=== PATIENT | female | born 2000 | race Caucasian/White ===

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

== ENCOUNTER 2024-02-25 11:28 | Emergency (ER) | payer BC, SELFPAY ==
[2024-02-25 11:29] VITALS: BP 137/89; PULSE 92; RESP 20; TEMP 37.2; O2SAT 100; BMI 20.1
--- NOTE | 2024-02-25 11:42 | XR_ITS ---
FINAL REPORT CLINICAL HISTORY: with [facility] view - concern for osteo vs septic eri FINDINGS: Right knee Four views were obtained. There is no acute fracture or dislocation. The joint spaces appear normal. There is abnormal sclerosis of the patella, probably related to prior patellar surgery. There is soft tissue edema anterior to the knee. No definite bony erosion or periosteal reaction is identified. IMPRESSION: No acute process. Reviewed, Interpreted and Dictated by Harvey Collado MD Transcribed by Minerva Chappell Authenticated and [facility]
--- NOTE | 2024-02-25 11:44 | ED_ITS ---
Discharge Plan Disposition Patient Disposition: Home, Self-Care Chief Complaint: Extremity Problem,Nontraumatic Prescriptions Prescriptions: No Action No Known Home Medications Referrals Follow up/Referrals: Fabrizio King MD [Primary Care Provider] - See instructions Activity Restrictions/Add. Instructions Additional Instructions/Restrictions: Follow-up with your family doctor regarding this visit to the emergency department as needed. Also contact the orthopedic office and maintain follow-up as we discussed on Thursday. If you have any other concerning signs or symptoms, return to the emergency department for further evaluation. Clinical Impressions Clinical Impression: Pain and swelling of right knee Print Language Print Language: Mohawk Discharge ED Provider: Tha Knutson General Adult HPI General Chief complaint: Extremity Problem,Nontraumatic Stated complaint: pain and swelling R knee, post op 5 weeks Time Seen by Provider: 02/25/24 11:31 History of Present Illness HPI narrative: Please note that above description of symptoms, in this electronic medical record under categorization of recalled from ER triage doctor by RN are reflective of an initial nursing assessment, however, is not reflective of my full history and physical exam that was personally taken and clarified. Consequentially, this preceding description of symptoms, which may include the patient's categorized chief complaint in the EMR, do not reflect my personal clinical impression, and the ultimate description of history of present illness and patient stated complaints should be deferred to this section of the note. Unless stated otherwise or congruent with this section of the note, additional signs, symptoms, or incongruence should be interpreted as inaccurate with my clinical impression. Related Data Home Medications ?Medication ?Instructions ?Recorded ?Confirmed No Known Home Medications 12/28/23 12/28/23 Allergies Allergy/AdvReac Type Severity Reaction Status Date / Time No Known Allergies Allergy Unverified 12/28/23 14:53 [facility] Disclaimer: The information contained in this section may have been updated after the patient was seen, as this information can be updated by other users. Surgical History (Updated 12/28/23 @ 14:54 by Betsy Serrano) History of cholecystectomy History of knee surgery Family History (Updated 12/28/23 @ 14:55 by Betsy Serrano) Other FHx: mental illness Thyroid disorder Social History (Updated 12/28/23 @ 14:58 by Betsy Serrano) Smoking Status: Current every day smoker alcohol intake: never substance use type: marijuana current occupational status: employed Travel in the last 8 weeks: None household members: family housing: house marital status: single number of children: 0 ROS Obtained: Yes All systems reviewed & no additional complaints except as documented Physical Exam General General appearance: alert and anxious Head Head exam: atraumatic and normocephalic Eye Eye exam: Present normal appearance, PERRL and EOMI Neck Neck exam: Present normal inspection, full ROM and trachea midline Respiratory Respiratory exam: Absent respiratory distress, wheezes, stridor, accessory muscle use or prolonged expiratory phase Cardiovascular Cardiovascular exam: Present other (Pulses equal symmetric in upper and lower extremities) Abdominal Exam Abdominal exam: Present soft; Absent distention, tenderness or pulsatile mass Extremities Exam Extremities exam: Present edema, joint swelling and other (Surgical scars overlying right knee. Right knee effusion with erythema. Tenderness with patellar glide. Tenderness at joint space medially and laterally. No posterior tenderness. Flexion of knee intact, extension of knee absent, but chronic.); Absent full ROM Neurological Exam Neurological exam: Present alert, oriented X3 and CN II-XII intact; Absent motor sensory deficit Skin Skin exam: Present warm and dry; Absent diaphoresis or erythema Medical Decision Making Medical Records Medical records reviewed: Yes I reviewed the patient's medical records. Ike Inquiry Pt receiving controlled substance: No Ike was queried for this patient: No Vital Signs: 02/25/24 11:29 02/25/24 11:45 Temperature 98.9 F Temperature Source Oral Pulse Rate 82 Pulse Rate [Right] 92 H Respiratory Rate 20 Blood Pressure [Right Arm] 137/89 Blood Pressure Mean [Right Arm] 105 02 Sat by Pulse Oximetry 100 97 Oxygen Delivery Method Room Air Lab Data Lab Results 02/25/24 11:45: WBC 5.1, RBC 4.57, Hgb 13.9, Hct 42.4, MCV 92.8, MCH 30.4, MCHC 32.8, RDW 13.1, Plt Count 286, MPV 7.9, Neut % (Auto) 51.6, Lymph % (Auto) 41.4, [place] % (Auto) 5.1, Eos % (Auto) 0.8, Baso % (Auto) 1.2, Neut # (Auto) 2.7, Lymph # (Auto) 2.1, [place] # (Auto) 0.3, Eos # (Auto) 0.0, Baso # (Auto) 0.1, ESR 3, Sodium 141, Potassium 4.0, Chloride 107, Carbon Dioxide 26, Anion Gap 12.0, BUN 12, Creatinine 0.70, Estimated Creat Clear 94, Estimated GFR 106, Est GFR ( Amer) 128, Glucose 97, Lactate 1.2, Calcium 9.6, Total Bilirubin 0.3, AST 26, ALT 25, Alkaline Phosphatase 57, C-Reactive Protein 0.3, Total Protein 7.4, Albumin 4.6, Globulin 2.8, Albumin/Globulin Ratio 1.6 02/25/24 11:45 02/25/24 11:45 Orders (Tests/Meds): ED MEDICATIONS Discontinued Medications Generic Name Dose Route Start Last Admin Trade Name Freq PRN Reason Stop Dose Admin Acetaminophen 1,000 mg 02/25/24 11:46 02/25/24 12:01 Acetaminophen 1,000mg/100ml Vial IV 02/25/24 11:47 1,000 mg ONCE ONE Administration Ketorolac Tromethamine 15 mg 02/25/24 11:46 02/25/24 12:01 Ketorolac 30mg/Ml Vial IV 02/25/24 11:47 15 mg ONCE ONE Administration ORDERS Category Date Time Status Knee XR right 4 views [XR knee RT 4V] Stat Exams 02/25/24 11:42 Taken CBC w/Auto Diff [Complete Blood Count Auto Diff] Stat Lab 02/25/24 11:45 Completed CMP [Comprehensive Metabolic Panel] Stat Lab 02/25/24 11:45 Completed CRP [C-Reactive Protein] Stat Lab 02/25/24 11:45 Completed ESR [Erythrocyte Sedimentation Rate] Stat Lab 02/25/24 11:45 Completed Lactic Acid Stat Lab 02/25/24 11:45 Completed Medical Decision Narrative: 23-year-old female history of traumatic arthrotomy right knee with multiple fractures status post numerous reconstructive surgeries most recent being 5 weeks prior to this visit at [facility] presenting with right knee swelling, redness, pain. Patient says it started hurting a few days prior to this. She has been taking ibuprofen and icing at home. Has been following with physical therapy. Over the past couple of days, it has gotten more swollen, erythematous, tender. She is mostly concerned because she has had a history of osteomyelitis in the past necessitating numerous surgeries as well as rejection of orthopedic hardware. She denies systemic symptoms like fevers, chills, nausea, vomiting. History was obtained via conversation with patient. On arrival, patient hemodynamically stable, alert, oriented x4, appropriate, GCS 15, moving all extremities spontaneously, pupils equal and reactive to light. Full physical exam performed and significant for Surgical scars overlying right knee. Right knee effusion with erythema. Tenderness with patellar glide. Tenderness at joint space medially and laterally. No posterior tenderness. Flexion of knee intact, extension of knee absent, but chronic. Differential includes postop changes, rejection, septic arthritis, osteomyelitis, among others. Patient was given Toradol acetaminophen for symptomatic management and correction of underlying abnormalities. Workup independently interpreted and significant for normal CBC with no leukocytosis. ESR and CRP both normal. Chemistry normal as well. X-rays of the knee independently interpreted and with small suprapatellar and joint effusion, no evidence of osteomyelitis. See radiology read for full review of final results. On reevaluation, patient feeling much better. Given patient presentation, workup, history, this most likely represents rejection. Steroids were offered, but patient states that in the past, she had normal labs with osteomyelitis, because of this, suppression of the immune system was not deemed appropriate at this time. She has follow-up with her orthopedic surgeon on Thursday of next week, I feel this is appropriate as well. Strict return precautions were given and she voiced her understanding. Because patient at baseline without signs or symptoms of clinical decompensation, deemed appropriate for discharge. Results were relayed to patient who voiced understanding and were agreeable to outpatient management and follow up. I discussed my clinical impression with patient and answered all questions. At this time, the evidence for any other entities in the differential is insufficient to warrant any further testing or ED observation. This was explained as well. Advisory was given that persistent or worsening symptoms require further evaluation. I confirmed the understanding of this discussion. Radiology Director disclaimer Much of this encounter note is an electronic award clerk spoken language to printed text. Electronic award clerk of the spoken language may permit errors. Although I have reviewed the note, some errors may still exist. Critical Care Critical Care Time Critical Care Time: No
[2024-02-25 11:45] VITALS: PULSE 82; O2SAT 97
[2024-02-25] MEDS: ACETAMINOPHEN 1,000MG/100ML VIAL 1000 MG IV (12:01)
[2024-02-25] MEDS: KETOROLAC 30MG/ML VIAL 15 MG IV (12:01)
[2024-02-25 12:02] LABS: Basophils # 0.1 K/mm3 (0-0.2); Basophils % 1.2 % (0.1-2.0); Eosinophils % 0.8 % (0.1-12.0); Hematocrit 42.4 % (37.0-47.0); Hemoglobin 13.9 g/dL (12.2-16.2); Lymphocytes # 2.1 K/mm3 (0.7-4.5); Lymphocytes % 41.4 % (10-50); Mean Corpuscular HGB Conc 32.8 g/dL (31.8-35.4); Mean Corpuscular Hemoglobin 30.4 pg (27.0-31.2); Mean Corpuscular Volume 92.8 fl (81-99); Mean Platelet Volume 7.9 fl (7.4-10.4); Monocytes # 0.3 K/mm3 (0.1-1.0); Monocytes % 5.1 % (1.7-9.3); Neutrophils # 2.7 K/mm3 (1.8-7.8); Neutrophils % 51.6 % (37.0-80.0); Platelet Count 286 K/mm3 (142-424); Red Blood Count 4.57 M/mm3 (4.20-5.40); Red Cell Distribution Width 13.1 % (11.5-17.5); White Blood Count 5.1 K/mm3 (4.8-10.8)
[2024-02-25 12:19] LABS: Alanine Aminotransferase 25 U/L (12-78); Albumin Level 4.6 g/dl (3.5-5.0); Albumin/Globulin Ratio 1.6 (1.1-1.8); Alkaline Phosphatase 57 U/L (38-126); Aspartate Amino Transferase 26 U/L (14-36); Bilirubin,Total 0.3 mg/dl (0.2-1.3); Blood Urea Nitrogen 12 mg/dl (7-17); Calcium 9.6 mg/dl (8.4-10.2); Carbon Dioxide 26 mmol/L (22.0-30.0); Chloride 107 mmol/L (98-107); Creatinine Clearance Estimated 94 mL/min (50-200); Estimated Glomerular Filt Rate 106 ml/min (>60); GFR (African American) 128 ML/MIN (>60); Globulin 2.8 g/dL (1.3-3.2); Glucose 97 mg/dl (74-100); Sodium 141 mmol/L (136-145); Total Protein,Serum 7.4 g/dl (6.3-8.2)
[2024-02-25 12:20] LABS: Lactic Acid 1.2 mmol/L (0.7-2.1)
[2024-02-25 12:32] LABS: Erythrocyte Sedimentation Rate 3 mm/hr (0-20)
[2024-02-25 12:35] LABS: C-Reactive Protein 0.3 mg/L (0-4)
--- NOTE | 2024-02-25 12:44 | PC.NURSE ---
ROUNDED ON PT. NO NEEDS AT THIS TIME. CALL LIGHT WITHIN REACH
[2024-02-25 13:43] VITALS: BP 137/89; PULSE 82; RESP 20; TEMP 37.2; O2SAT 97
== END 2024-02-25 13:44 | disposition home or self-care (01) ==
PROVIDERS: Emergency Provider Emergency Medicine; PCP Orthopaedic Surgery Pediatric Orthopaedic Surgery
DX: M25.561 Pain in right knee (principal); M25.461 Effusion, right knee
CPT/HCPCS: 73564; 80053; 83605; 85025; 85651; 86140; 96374; 96375; 99284; J0131; J1885

== ENCOUNTER 2024-04-21 15:46 | Outpatient (CLI) | payer BC, SELFPAY ==
--- NOTE | 2024-04-21 16:01 | XR_ITS ---
FINAL REPORT CLINICAL HISTORY: OSTEOCHONDRAL DEFECT OF PATELLA COMPARISON: None FINDINGS: RIGHT KNEE: There are multiple lucencies in the patella that likely represent postoperative change. There is a chronic bone fragment just superior to the patella. No evidence of a joint effusion is noted. There is no soft tissue abnormality. IMPRESSION: Multiple lucencies in the patella that likely represent postoperative change. Chronic appearing bone fragment just superior to the patella, without evidence of a joint effusion. Reviewed, Interpreted and Dictated by Tay Andrews MD Transcribed by Acacia Ba Authenticated and [facility]
== END 2024-04-21 23:59 | disposition home or self-care (01) ==
PROVIDERS: PCP Orthopaedic Surgery Pediatric Orthopaedic Surgery
DX: M95.8 Other specified acquired deformities of musculoskeletal system (principal)
CPT/HCPCS: 73562

== ENCOUNTER 2024-06-06 15:28 | Outpatient (CLI) | payer BC, SELFPAY ==
--- NOTE | 2024-06-06 15:31 | MR_ITS ---
FINAL REPORT CLINICAL HISTORY: RT KNEE PAIN 11 knee surgeries FINDINGS: Multiplanar MR imaging of the right knee was performed without contrast. The medial and lateral menisci are intact without evidence of meniscal tear. The anterior and posterior cruciate ligaments are intact. The medial collateral ligament and lateral ligamentous complex are intact. The distal quadriceps tendon is intact. There is proximal patellar tendinitis. Postoperative changes are seen in the patella with an osteotomy and presumed reconstruction. There is bone marrow edema in the patellar fragment and to a lesser extent the [place] portion of the patella. No significant abnormality is noted of the patellar cartilage. The other cartilage appears intact. A small joint effusion is seen. The musculature is intact. No soft tissue mass or cyst is identified. IMPRESSION: No evidence of meniscal or ligamentous injury. Postoperative changes of the patella with bone marrow edema. No significant focal cartilage abnormality identified. Authenticated and [facility]
== END 2024-06-06 23:59 | disposition home or self-care (01) ==
LOC: RAD 15:28
PROVIDERS: PCP Physician Assistant; Visit Provider Physician Assistant
DX: M22.41 Chondromalacia patellae, right knee (principal)
CPT/HCPCS: 73721

== ENCOUNTER 2024-06-27 14:25 | Outpatient (CLI) | payer BC, SELFPAY ==
--- NOTE | 2024-06-27 14:25 | MR_ITS ---
FINAL REPORT CLINICAL HISTORY: encephalopathy LOSS OF MEMORY 9 ML PROHANCE COMPARISON: None FINDINGS: Multiplanar MR imaging of the brain was performed without and with contrast. There is no evidence of intracranial hemorrhage or mass. No abnormal extra-axial fluid collection is seen. The ventricular size is within normal limits. There is no evidence of shift of the midline structures. The posterior fossa and brainstem have an unremarkable appearance. No area of abnormal restricted diffusion is identified. No abnormal contrast enhancement is seen. Normal major vessel vascular flow voids are noted. IMPRESSION: No acute intracranial abnormality identified. Reviewed, Interpreted and Dictated by Rayray Lin III, MD Transcribed by Acacia Ba Authenticated and [facility]
[2024-06-27] MEDS: GADOTERIDOL INJ 10ML SYRINGE 9 ML IV (15:28)
[2024-06-27] MEDS: SODIUM CHLORIDE 0.9% 10ML SYR (RAD ONLY) 10 ML IV (15:28)
== END 2024-06-27 23:59 | disposition home or self-care (01) ==
LOC: RAD 14:25
PROVIDERS: PCP Physician Assistant; Visit Provider Specialist
DX: R41.3 Other amnesia (principal); E04.9 Nontoxic goiter, unspecified
CPT/HCPCS: 70553; A9576

== ENCOUNTER 2025-04-05 15:42 | Outpatient (CLI) | payer BC, SELFPAY ==
--- OUTSIDE RECORDS SUMMARY | 2025-04-05 15:44 | XMS_ITS | Clinical Summary ---
Author Organization [facility] Address [address] [place] [address] Care Team Providers Care Food Service Team Member Name Role Phone No Pcp, [facility] Primary Care Provider Unavailabl e Source Comments [facility] is fully rolled out with thefollowing exceptions:General Clinical Research [facility] Allergies No known active allergies Medications ondansetron (ZOFRAN ODT) 4 MG disintegrating tabletIndications: Chondral defect of patella, unspecified laterality Dissolve 1 tablet in the mouth every 8 hours as needed for nausea or vomiting. 24 tablet 03/01/20 24 Active gabapentin (NEURONTIN) 100 MG capsuleIndications :Chondral defect of patella, unspecified laterality Take 1 capsule by mouth at bedtime. This prescription contains 30 days' supply. Take 100 mg once a day for 3 days, then take 200 mg once a day for 3 days, then take 300 mg once a day. Take this medication in the evening. When stopping this medication wean off of it starting with 200 mg for 3 days and then 100 mg for 3 days 81 capsule 1 03/01/20 24 Active Active Problems Problem Noted Date Diagnosed Date Knee pain, right 03/09/2024 Acute postoperative pain 03/09/2024 Chondral defect of patella 03/01/2024 Incisional pain 01/19/2024 Pain at surgical incision 01/19/2024 Muscle spasm 01/19/2024 Osteochondral defect of patella 01/19/2024 Impaired functional mobility, balance, gait, and endurance 04/23/2022 Decreased range of motion of right knee 04/23/20 Chronic pain of right knee 04/23/2022 Chronic primary musculoskeletal pain 04/23/2022 Muscle tightness 04/23/2022 Resolved Problems Problem Noted Date Diagnosed Date Resolved Date remote patient monitoring-vivify 01/23/2024 01/23/2024 Encounters Date Type Department Care Team Description 03/10/2025 Orders Only [facility] Division of Orthopaedics [address] [place] [phone] Fabrizio King M.D. Osteochondral defect of patella (Primary Dx) from Last 3 Months Family History Medical History Relation Name Comments Factor V Leiden deficiency Mother Nilo's thyroiditis Mother Malignant Hyperthermia Neg Hx Relation Name Status Comments Mother Social History Tobacco Use Types Packs/Day Years Used Date Smoking Tobacco: Never Smokeless Tobacco: Never Tobacco Cessation:Counseling Given: Not Answered Alcohol Use Standard Drinks/Week Comments Never 0 (1 standard drink = 0.6 oz pur e alcohol) Intimate Partner Violence Answer Date R ecorded If you are in a relationship , do you feel safe in that relationship? Yes 03/17/2024 If you are in a relationship , do you feel safe in that relationship? Not currently in a relationship 03/17/2024 Transportation Needs Answer Date Record ed In the past 12 months, has l ack of transportation kept you from medical appointments, the pharmacy, meetings, work or from getting things needed for daily living? No Current medical transportation issues Not on joselyn e 03/04/2024 Safety and Environment Answer Date Joaquim rded Do you have any concerns of physical abuse, sexual abuse, or neglect of your child? No 03/17/2024 Adult hurting you or family (11-18) Not on file 03/17/2024 Someone touched you in a sexual way? (-18) Not on file 03/17/2024 Is someone hurting your or your family? No 03/17/2024 Historical abuse worry Not on file If you have firearms in the home, are they all in locked storage AND unloaded? Not on file 03/17/2024 Comments No Sex and Gender Information Value Date Recorded Sex Assigned at Not on file Legal Sex Female 12:07 PM EST Gender Identity Not on file Sexual Orientation Not on file Last Filed Vital Signs Vital Sign Reading Time Taken Comments Blood Pressure 95/72 03/11/2024 11:57 AM EDT Pulse 74 03/11/2024 11:57 AM EDT Temperature 36.5 C (97.7 F) 03/11/2024 11:57 AM EDT Respiratory Rate 16 03/11/2024 11:5 7 AM EDT Oxygen Saturation 97% 03/11/2024 4:13 AM EDT Inhaled Oxygen Concentration - - Weight 46.7 kg (102 lb 15.3 oz) 03/09/2024 4:55 PM EDT Height 156.9 cm (5' 1.77 ) 07/04/2021 4:40 PM ES T Body Mass Index 18.97 07/04/2021 4:40 PM EST Plan of Treatment Health Maintenance Due Date Last Done Comments HPV IMMUNIZATION (1 - 3-dose series) 2017 MENINGOCOCCAL B VACCINE (1 of 2 - Standard) 2018 DTAP/Tdap/Td IMMUNIZATION (7 - Td or Tdap) 11/15/2023 11/14/2013, 07/14/2008, 02/28/2004, Additional history exists AMB SEASONAL FLU VACCINE (#1) 03/27/2025 COVID-19 Vaccine ( season) 2025 HEPATITIS B IMMUNIZATION Completed 003, 2002, 2002 HIB IMMUNIZATION Completed 11/27/2003, 10/2002, 2002, Additional history exists PNEUMOCOCCAL IMMUNIZATION Aged Out 2003, 03/03/2003, 2002, Additional history exists No longer eligible based on patient's age to complete this topic MMR IMMUNIZATION Completed 07/13/2007, 11/27/2003 VARICELLA IMMUNIZATION Completed 07/13/2007, 2003 IPV IMMUNIZATION Completed 07/14/2008, 11/2003, 03/03/2003, Additional history exists MCV4 IMMUNIZATION Aged Out 11/14/2013 No longer eligible based on patient's age to complete this topic Respiratory Syncytial Virus (RSV) <20mo Aged Out No longer eligible based on patient's age to complete this topic Medical Devices Implanted Type Area Huller Operator Device Identifier Shelf Expiration Date Model / Serial / Lot Patella Bone, Right Implanted:Qty: 1 on 01/19/2024 by Fabrizio King M.D. at [facility] Orthopedic Right: Knee 01/19/2024 [id number] / NA / [id number] Description:JRF Ortho Grft Inject Extremity 4cc Implanted:06/26 (Quantity not on file) [id number] / / Cartiform 20mm Disc Implanted:09/2020 (Quantity not on file) [id number] / / [place] [address] [facility] NON-TRADITIONAL Care Teams Food Service Team Member Relationship Specialty Start Date End Date No Pcp, [facility] PCP - General 02/28/23
--- OUTSIDE RECORDS SUMMARY | 2025-04-05 15:44 | XMS_ITS | Encounter Summary ---
Author Organization Healthcare Address [address] [place] [address] Care Team Providers Care Court Orderly Name Role Phone Unavailable Primary Care Provider Unavailabl e Encounter Details Date Type Department Care Team (Late st Contact Info) Description 09/02/2024 Community Orders Community Practice [address] [place] [address] Sherry Goldman MD [address] [facility] [address] [place] [address] History of traumatic brain injury (Primary Dx) Social History Tobacco Use Types Packs/Day Years Used Date Smoking Tobacco: Never Assessed Comments Unknown Sex and Gender Information Value Date Recorded Sex Assigned at Not on file Legal Sex Female 10:03 AM EST Gender Identity Not on file Sexual Orientation Not on file documented as of this encounter Plan of Treatment Not on file documented as of this encounter Visit Diagnoses Diagnosis History of traumatic brain injury- Primary Personal history of traumatic brain injury documented in this encounter
--- OUTSIDE RECORDS SUMMARY | 2025-04-05 15:44 | XMS_ITS | Referral Summary ---
Author Organization [facility] Address [address] [place] [phone] Care Team Providers Care Single Spindle Screw Machine Operator Name Role Phone Pcp, None Primary Care Provider [phone] Allergies No known active allergies Social History Tobacco Use Types Packs/Day Years Used Date Smoking Tobacco: Never Assessed Utilities Answer Date Recorded Worried about losing home Not on file 2023 Stayed outside house Not on file 05/12/2024 Unable to get utilities Not on file 05/12/20 24 Comments Unknown Sex and Gender Information Value Date Recorded Sex Assigned at Not on file Legal Sex Female 10:18 AM EDT Gender Identity Not on file Sexual Orientation Not on file Last Filed Vital Signs Vital Sign Reading Time Taken Comments Blood Pressure 143/95 05/12/2024 10:40 AM EDT Pulse 107 05/12/2024 10:40 AM EDT Temperature 37.1 C (98.7 F) 05/12/2024 10:40 AM EDT Respiratory Rate 20 05/12/2024 10:40 AM EDT Oxygen Saturation 100% 05/12/2024 10:40 AM EDT Inhaled Oxygen Concentration - - Weight - - Height - - Body Mass Index - - Plan of Treatment Not on file Insurance [employer] [place] [address] Care Teams Single Spindle Screw Machine Operator Relationship Specialty Start Date End Date Pcp, None, No Address [place], [place] PCP - General Internal Medicine 05/12/24
--- OUTSIDE RECORDS SUMMARY | 2025-04-05 15:44 | XMS_ITS | Clinical Summary ---
Author Organization [facility] Address [address] [place] [id number] Care Team Providers Care Coverstitch Machine Operator Name Role Phone Pcp, None Primary Care Provider [phone] Allergies No known active allergies Social History [...] Mass Index - - Plan of Treatment Health Maintenance Due Date Last Done Comments HPV (1 - 3-dose series) 2017 Meningococcal B (MenB) (1 of 2 - Standard) 2018 Pap Screening 2023 DTap,Tdap,and Td (7 - Td or Tdap) 11/15/2023 11/14/2013, 07/14/2008, 02/28/2004, Additional history exists Influenza Vaccine (#1) 2025 RSV Vaccine (60+ or ) (1 - 1-dose 75+ series) 2077 Pneumococcal 0-49 Aged Out 02/29/2004, , 2002, Additional history exists No longer eligible based on patient's age to complete this topic Meningococcal conjugate valent 4 (MCV4) Aged Out 11/14/2013 No longer eligible based on patient's age to complete this topic RSV Immunization (<20 months) Aged Out No longer eligible based on patient's age to complete this topic Insurance [place] [employer] [id number] [employer] ALL OTHERS NOT MEDICARE [place] [id number] Care Teams Coverstitch Machine Operator Relationship Specialty Start Date End Date Pcp, None, No Address [place], [place] PCP - General Internal Medicine 05/12/24
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
--- OUTSIDE RECORDS SUMMARY | 2025-04-05 15:44 | XMS_ITS | Encounter Summary ---
Author Organization [facility] Address [address] [place] [address] Care Team Providers Care Real Estate Subagent Name Role Phone No Pcp, [facility] Primary Care Provider Unavailabl e Reason for Visit * Reason Comments Medication Refill Encounter Details Date Type Department Care Team (Late st Contact Info) Description 06/14/2024 Refill [facility] Division of Orthopaedics [address] [place] [phone] Fabrizio King M.D. Orthopaedic Surgery [address] [place] [phone] Medication Refill Social History Tobacco Use Types Packs/Day Years [...] as of this encounter Visit Diagnoses Diagnosis Chondral defect of patella, unspecified laterality documented in this encounter Care Teams Real Estate Subagent Relationship Specialty Start Date End Date No Pcp, [facility] PCP - General 02/28/23 documented as of this encounter
--- OUTSIDE RECORDS SUMMARY | 2025-04-05 15:44 | XMS_ITS | Clinical Summary ---
Author Organization [facility] Address [address] [place] [address] Care Team Providers Care Client Coordinator Name Role Phone Unavailable Primary Care Provider Unavailabl e Social History Tobacco Use Types Packs/Day Years Used Date Smoking Tobacco: Never Assessed Comments Unknown Sex and Gender Information Value Date Recorded Sex Assigned at Not on file Legal Sex Female 10:03 AM EST Gender Identity Not on file Sexual Orientation Not on file Plan of Treatment Not on file
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
== END 2025-04-05 23:59 | disposition home or self-care (01) ==
LOC: RAD 15:42
PROVIDERS: PCP Physician Assistant; Visit Provider Nurse Practitioner
DX: M95.8 Other specified acquired deformities of musculoskeletal system (principal); Z98.890 Other specified postprocedural states
CPT/HCPCS: 73721